=== PATIENT | male | born 1990 | race Caucasian/White ===

== ENCOUNTER → 2017-03-14 | Outpatient (CLI) | payer OTHER ==
[~2017-03-14] MED LIST: AMBIEN PO; FLEXERIL10 MG PO; IBS MED; LORTAB 5/500 TA1 TA1 PO; NAPROXEN PO; VICODIN 5/500 T1 TAB PO
--- NOTE | ~2017-03-14 | MR32 ---
[facility] Service of [facility] RADIOLOGY TEXT RESULTS PATIENT: JÚNIOR MCNAMARA LOCATION: [facility] : [birth year] UNIT #: [id number] AGE: [address]: Bharti Ahn MD SEX: M ORDER DR: [id number] [facility] [address] [place], [place] [address] [id number] O MR#: [id number] Acc #: [id number] NAME: JÚNIOR MCNAMARA : 1990 SEX: M STUDY DATE/TIME: 03/14/2017 8:08 UNIT: [facility] ROOM: STUDY DESCRIPTION: MR Cervical Wo Contrast Attending Physician: Bharti Ahn M.D. Ordering Physician: Bharti Ahn M.D. Primary Care Physician: Bharti Ahn M.D. MRI CENTER REPORT This report is preliminary unless electronic signature is present. EXAM Cervical MRI HISTORY Neck pain radiating to the left shoulder and down to the first 2 fingers of the left hand beginning 03/09/2017 TECHNIQUE Multiplanar imaging of the cervical spine was performed with short and long TR. FINDINGS Alignment is satisfactory. The right cerebellar tonsil is slightly low-lying consistent with mild Chiari-I malformation. At C2-3 no abnormalities are seen. At C3-4 there is a minimal posterior disc bulge with osteophyte. This causes no significant canal or foraminal narrowing. At C4-5 there is mild central disc bulging with wide patency of the canal and foramina. At C5-6 there is a broad-based disc protrusion extending both to the right and to the left of midline. The ventral cord is contacted and slightly flattened. Central canal narrowing is moderate. Foraminal narrowing is moderate bilaterally. Disc protrusion is more prominent to the left than to the right. At C6-7 there is disc space narrowing with a broad-based posterior disc [facility] of [facility] RADIOLOGY TEXT RESULTS PATIENT: JÚNIOR MCNAMARA LOCATION: [facility] : [birth year] UNIT #: [id number] AGE: [address]: Bharti Ahn MD SEX: M ORDER DR: osteophyte complex that extends more to the left than to the right. Central stenosis is mild. Foraminal stenosis is mild on the right and moderately severe on the left. The C7-T1 level is normal. The cord itself is normal in size and signal. There is no evidence of marrow edema or paraspinous mass. IMPRESSION Degenerative disc disease at multiple levels as described above level by level. At both C5-6 and C6-7 there is posterior disc protrusion. It is predominately to the left at C6-7 and bilateral at C5-6 although worse toward the left. Either the C5-6 or C6-7 levels could be potential sources for left-sided cervical radiculopathy. No cord lesions are seen. There are minimal degenerative changes at C3-4 and C4-5 and there is mild Chiari-I malformation on the right. Dictated by... Pio Hameed M.D. THIS IS AN ELECTRONICALLY VERIFIED REPORT Pio Hameed M.D. at 03/17/2017 4:10 PM ED/berenice TD: 03/17/2017 11:07 JOB #: [id number] [facility]ENTER REPORT Page 1 of 1 COPY
== END | disposition home or self-care (01) ==
LOC: CRAD 07:39
DX: M54.2 Cervicalgia (principal); M50.222 Other cervical disc displacement at C5-C6 level; M50.223 Other cervical disc displacement at C6-C7 level; G93.5 Compression of brain; M25.78 Osteophyte, vertebrae; M50.30 Other cervical disc degeneration, unspecified cervical region
CPT/HCPCS: 72141